=== PATIENT | female | born 1955 | race Caucasian/White ===

== ENCOUNTER 2024-08-12 10:34 | Emergency (ER) | payer BC, MEDICARE ==
[2024-08-12] MEDS: Lidocaine 1% 10 ML MDV INJECT ONE (12:12)
[2024-08-12] MEDS: Diphtheria,Pertussis(Acell),Tetanus Vaccine 0.5 ML Syringe IM ONE (12:40)
== END 2024-08-12 12:47 | disposition home or self-care (01) ==
LOC: JP.ED 10:34
DX: S61.210A Laceration without foreign body of right index finger without damage to nail, initial encounter (principal); W22.8XXA Striking against or struck by other objects, initial encounter; Z23 Encounter for immunization
CPT/HCPCS: 12001; 90471; 90715; 99282; J2003